=== PATIENT | female | born 1965 | race Caucasian/White ===

== ENCOUNTER → 2016-08-30 | Outpatient (CLI) | payer OTHER ==
[~2016-08-30] MED LIST: ALBUTEROL17 GM INH; ALDACTONE PO; ALTACE; AMITRIPTYLINE H25 MG PO; ARIPIPRAZOLE2 MG PO; ASPIRIN PO; ASPIRIN81 M2 PO; ATENOLOL25 MG PO; AURALGAN EAR DROPS; BP MED; BUPROPION XL150 MG PO; BUPROPION XL300 M1 PO; CELEXA PO; CELEXA20 MG PO; CIPRO PO; CLINDAMYCIN HC300 MG PO; CLOPIDOGREL75 MG PO; COMBIVENT INH14.7 GM INH; CRESTOR PO; EMBEDA ER 20-01 EACH PO; FERRO-TIME325 MG PO; FLEXERIL; FLEXERIL10 MG PO; GENERLAC PO; HYDROCHLOROTHIA25 MG PO; HYDROCODON-ACE1 EAC7 PO; HYDROXYZINE PAM25 M1 PO; HYDROXYZINE PAM25 MG PO; IBUPROFEN800 MG PO; IMDUR-ER30 M1 PO; IMDUR-ER30 M3 PO; ISOSORBIDE DINI30 MG PO; K-DUR20 ME1; KLOR-CON SPRIN10 MEQ PO; LASIX20 MG PO; LEVAQUIN750 M1 PO; LIPITOR PO; LIPITOR20 MG PO; LISINOPRIL; LISINOPRIL-HCTZ1 T14 PO; LISINOPRIL20 MG PO; LO-DOSE ASPIRIN81 M1 PO; LOPRESSOR PO; MEDROL4 MG/DOSE- PO; METOPROLOL SUCC25 MG PO; METOPROLOL TAR25 MG; MOTRIN600 M2 DOB; MUCINEX DM1 TAB.SR . PO; NITROGLYGERIN0.4 MG; NITROGYLCERIN; NUCYNTA100 MG PO; ORUDIS75 M1 PO; OXYCODONE PO; PATIENT'S PHARMACY; PERCOCET 10/3251 TAB PO; PERCOCET10 PO; PHENERGAN12.5 MG DOB; PREDNISONE PO; PREDNISONE1 MG; PREDNISONE10 MG PO; PREDNISONE10 MG/DOSE PO; SERTRALINE HCL50 MG PO; SYMBICORT INH; TENORMIN25 MG PO; TRAMADOL HCL50 M1 PO; VIBRAMYCIN100 M1 PO; VOLTAREN50 MG PO; XIFAXAN550 MG PO; ZESTORETIC; ZESTORETIC 20/21 TAB PO; ZITHROMAX PO; ZOLOFT; ZOLOFT PO
--- NOTE | ~2016-08-30 | US5 ---
[facility] A Service of [facility] RADIOLOGY TEXT RESULTS PATIENT: MUNA WILLIS LOCATION: [facility] : 63 UNIT #: [id number] AGE: [address]: CANDIDA SHAHID SEX: F ORDER DR: [id number] [place] [address] [place], [place] [address] [id number] O MR#: [id number] Acc #: [id number] NAME: MUNA WILLIS : 1965 SEX: F STUDY DATE/TIME: 08/30/2016 11:36 UNIT: [facility] ROOM: STUDY DESCRIPTION: US Abdominal Complete Attending Physician: Candida Shahid Aprn Referring Physician: Candida Shahid Aprn Ordering Physician: Physician Non-Staff [facility] REPORT This report is preliminary unless electronic signature is present EXAM Abdominal ultrasound complete, 08/30/2016. HISTORY Hepatitis C treated over 1 year ago. Observation for hepatocellular carcinoma. Abdominal bloating for 3 months. FINDINGS The liver demonstrates a coarsened echotexture and surface nodularity characteristic of cirrhosis. No cystic or solid mass lesions were seen in the liver. The intra and extrahepatic bile ducts are not dilated. The gallbladder is normal with no evidence of cholelithiasis, wall thickening, or pericholecystic fluid. The common duct measures 4 mm. The pancreas is normal. The spleen is minimally enlarged measuring 13.4 cm in greatest diameter. The visualized portions of the abdominal aorta and inferior vena cava are within normal limits. The kidneys are normal bilaterally. IMPRESSION 1. Coarsened liver echotexture and surface nodularity characteristic of cirrhosis. No cystic or solid mass lesions were seen in the liver. 2. Normal gallbladder. 3. Mild splenomegaly. Dictated by... Alberto Don M.D. THIS IS AN ELECTRONICALLY VERIFIED REPORT Alberto Don M.D. at 08/31/2016 8:29 AM ALISHA/vikram TD: 08/30/2016 14:33 [facility] A Service of [facility] RADIOLOGY TEXT RESULTS PATIENT: MUNA WILLIS LOCATION: [facility] #: [id number] : 63 UNIT #: [id number] AGE: [address]: CANDIDA SHAHID SEX: F ORDER DR: JOB #: [id number] MEDICAL IMAGING REPORT Page 1 of 1 COPY
== END | disposition home or self-care (01) ==
LOC: CGUS 10:11
DX: B18.2 Chronic viral hepatitis C (principal); R16.1 Splenomegaly, not elsewhere classified
CPT/HCPCS: 76700

== ENCOUNTER 2016-10-20 23:50 | Emergency (ER) | payer OTHER ==
--- NOTE | ~2016-10-20 | CR72 ---
[facility] A Service of [facility] RADIOLOGY TEXT RESULTS PATIENT: MUNA WILLIS LOCATION: [facility] : 63 UNIT #: [id number] AGE: [address]: Karla Pearson APRN SEX: F ORDER DR: [id number] [facility] [address]. [place], [place] [address] [id number] P MR#: [id number] Acc #: [id number] NAME: MUNA WILLIS : 1965 SEX: F STUDY DATE/TIME: 10/21/2016 1:06 UNIT: [facility] ROOM: STUDY DESCRIPTION: CR Chest Single View Portable Ordering Physician: Ed Alessandro Will M.D. Primary Care Physician: [facility] MEDICAL IMAGING REPORT This report is preliminary unless electronic signature is present EXAM Single view chest INDICATION Chest pain for 2 days. Positive smoking history. FINDINGS Single portable AP view of the chest compared to 10/19/2015. Heart and mediastinal contour is normal. There is an old left-sided rib fracture at the left seventh rib. No pneumothorax or pleural effusion. IMPRESSION No acute cardiopulmonary findings. Dictated by... Darrian Newman M.D. THIS IS AN ELECTRONICALLY VERIFIED REPORT Darrian Newman M.D. at 10/21/2016 4:30 AM RISA/nguyen TD: 10/21/2016 02:16 JOB #: [id number] MEDICAL IMAGING REPORT Page 1 of 1 COPY
--- NOTE | ~2016-10-20 | EKG ---
PATIENT: MUNA WILLIS UNIT #: [id number] Ventricular Rate: 91 BPM Atrial Rate: 91 BPM P-R Interval: 122 ms QRS Duration: 84 ms Q-T Interval: 380 ms QTC Calculation(Bezet): 467 ms P [place]: 74 degrees Calculated R [place]: 40 degrees Calculated T [place]: 55 degrees Diagnosis Line: Normal sinus rhythm Diagnosis Line: Nonspecific ST and T wave abnormality Diagnosis Line: Prolonged QT Diagnosis Line: Abnormal ECG Diagnosis Line: No previous ECGs available Diagnosis Line: Confirmed by NAVDEEP ALVARADO MD ([id number]) on Diagnosis Line: 10/21/2016 1:36:47 PM INTERPRETING MD: CHRISTIANO HUERTA
[~2016-10-20 23:50] MED LIST changes: -ALDACTONE PO; -EMBEDA ER 20-01 EACH PO; -GENERLAC PO; -HYDROXYZINE PAM25 M1 PO; -IMDUR-ER30 M1 PO; -LASIX20 MG PO; -PATIENT'S PHARMACY; -PERCOCET10 PO; -XIFAXAN550 MG PO
[2016-10-21 02:12] LABS: BASOPHIL% 0.4 % (0-2.5); EOSINOPHIL% 0.3 % (0.0-7.0); HEMOGLOBIN 13.3 gm/dL (12.0-16.0); LYMPHOCYTE# 2.1 X10e3 (1.0-3.5); LYMPHOCYTE% 24.5 % (17.0-45.0); MEAN CELL VOLUME 91.2 FL (83-96); MEAN CORPUSCULAR HEMOGLOBIN 30.2 PG (28-34); MEAN CORPUSCULAR HGB CONC 33.2 g/dL (30-36); MONOCYTE# 0.7 X10e3 (0-1.0); MONOCYTE% 7.6 % (3.0-12.0); NEUTROPHIL# 5.9 X10e3 (1.5-7.1); NEUTROPHIL% 67.2 % (40-75); PLATELET COUNT 128 X10e3 (140-420); RED BLOOD COUNT 4.38 X10e (3.90-5.30); RED CELL DISTRIBUTION WIDTH 17.8 % (11.0-15.5); WHITE BLOOD COUNT 8.7 X10e3 (4.0-10.5)
[2016-10-21 02:14] LABS: DIFF IND NO
[2016-10-21 02:27] LABS: INR 1.1; PARTIAL THROMBOPLASTIN TIME 23.8 SECONDS (23.5-31.3); PROTHROMBIN TIME (PATIENT) 11.3 SECONDS (9.6-11.5)
[2016-10-21 02:31] LABS: POC - CKMB 2.3 ng/mL (0.0-7.9); POC - TROPONIN <0.05 ng/mL (<=0.05)
[2016-10-21 02:36] LABS: ALBUMIN SERUM 4.6 g/dL (3.5-5.0); BILIRUBIN, DIRECT 0.1 mg/dL (0.0-0.2); BILIRUBIN,INDIRECT 0.6 mg/dL (0.0-0.9); BILIRUBIN,TOTAL 0.7 mg/dL (0.2-2.0); BUN/CREATININE RATIO 7.27; CALCIUM SERUM 9.1 mg/dL (8.4-10.2); CREATININE SERUM 1.1 mg/dL (0.6-1.4); GLOM FILT RATE Estimated 58.1 mL/min (>60); POTASSIUM 3.9 mmol/L (3.5-5.1); PROTEIN TOTAL SERUM 7.5 g/dL (6.0-8.3)
[2016-10-21 04:34] LABS: AMYLASE 32 U/L (0-46); LIPASE 30 U/L (22-51)
[2016-10-21 04:51] LABS: POC - TROPONIN <0.05 ng/mL (<=0.05)
[2017-01-11] MEDS ORDERED: GENERLAC PO (12:07)
[2017-01-11] MEDS ORDERED: EMBEDA ER 20-01 EACH PO (12:09)
[2017-01-11] MEDS ORDERED: XIFAXAN550 MG PO (12:10)
[2017-01-11] MEDS ORDERED: PERCOCET10 PO (12:11)
[2017-01-11] MEDS ORDERED: HYDROXYZINE PAM25 M1 PO (12:12)
[2017-01-11] MEDS ORDERED: LIPITOR20 MG PO (15:06)
[2017-01-11] MEDS ORDERED: LASIX20 MG PO (15:06)
[2017-01-11] MEDS ORDERED: CLOPIDOGREL75 MG PO (15:06)
[2017-01-11] MEDS ORDERED: ALDACTONE PO (15:06)
[2017-01-11] MEDS ORDERED: ALBUTEROL17 GM INH (15:06)
[2017-01-11] MEDS ORDERED: TENORMIN25 MG PO (15:06)
[2017-01-11] MEDS ORDERED: IMDUR-ER30 M1 PO (15:07)
== END 2016-10-21 05:37 | disposition home or self-care (01) ==
LOC: CED 23:50
PROVIDERS: Nurse Practitioner
DX: R07.89 Other chest pain (principal); R10.10 Upper abdominal pain, unspecified; I11.9 Hypertensive heart disease without heart failure; I51.9 Heart disease, unspecified; J44.9 Chronic obstructive pulmonary disease, unspecified; F41.9 Anxiety disorder, unspecified; K74.60 Unspecified cirrhosis of liver; F10.10 Alcohol abuse, uncomplicated; F17.210 Nicotine dependence, cigarettes, uncomplicated
CPT/HCPCS: 36415; 71010; 80048; 80076; 82150; 82553; 83690; 84484; 85025; 85610; 85730; 93005; 96361; 96374; 96375; 99284

== ENCOUNTER 2016-11-02 13:54 | Emergency (ER) | payer OTHER ==
--- NOTE | ~2016-11-02 | EKG ---
PATIENT: MUNA WILLIS UNIT #: [id number] Ventricular Rate: 59 BPM Atrial Rate: 59 BPM P-R Interval: 132 ms QRS Duration: 86 ms Q-T Interval: 446 ms QTC Calculation(Bezet): 441 ms P [place]: 46 degrees Calculated R [place]: 29 degrees Calculated T [place]: 68 degrees Diagnosis Line: Sinus bradycardia Diagnosis Line: Septal infarct , age undetermined Diagnosis Line: Abnormal ECG Diagnosis Line: When compared with ECG of 20-OCT-2016 23:58, Diagnosis Line: Vent. rate has decreased BY 32 BPM Diagnosis Line: Nonspecific T wave abnormality no longer evident Diagnosis Line: in Inferior leads Diagnosis Line: Confirmed by HILLARY ZAMBRANO MD ([id number]) on 11/03/2016 Diagnosis Line: 6:38:01 PM INTERPRETING MD: JUAN MANUEL HUERTA
--- NOTE | ~2016-11-02 | CR181 ---
[facility] A Service of [facility] RADIOLOGY TEXT RESULTS PATIENT: MUNA WILLIS LOCATION: [facility] : 63 UNIT #: [id number] AGE: [address]: Samson Rich MD SEX: F ORDER DR: [id number] [facility] [address] [place], [place] [address] [id number] E MR#: [id number] Acc #: [id number] NAME: MUNA WILLIS : 1965 SEX: F STUDY DATE/TIME: 11/02/2016 15:24 UNIT: [facility] ROOM: STUDY DESCRIPTION: CR Lumbar Spine 2 or 3 Views Attending Physician: Samson Rich M.D. Ordering Physician: Samson Rich M.D. Primary Care Physician: [facility]. MEDICAL IMAGING REPORT This report is preliminary unless electronic signature is present EXAM Lumbar series, 11/02/2016 INDICATIONS Tailbone pain extending into the proximal to lower and mid back regions. Symptoms 3 days. No known injury. TECHNIQUE Three views of the lumbar spine. COMPARISON 11/13/2014 FINDINGS The bones are osteopenic. There is degenerative change of the right hip. The patient is status post interval left hip replacement. There is a pars defect at L5-S1 with minimal, grade I antegrade listhesis of L5 on S1, unchanged. Alignment otherwise preserved, no acute fracture. Atherosclerotic calcifications are present. IMPRESSION 1. 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 Alignment otherwise preserved, no acute fracture. 2. Atherosclerotic disease and interval left hip replacement. Dictated by... Sergio May M.D. THIS IS AN ELECTRONICALLY VERIFIED REPORT Sergio May M.D. at 11/03/2016 7:42 AM DONG/fred [facility] A Service [facility] RADIOLOGY TEXT RESULTS PATIENT: MUNA WILLIS LOCATION: [facility] : 63 UNIT #: [id number] AGE: [address]: Samson Rich MD SEX: F ORDER DR: TD: 11/02/2016 21:22 JOB #: [id number] MEDICAL IMAGING REPORT Page 1 of 1 COPY
--- NOTE | ~2016-11-02 | CR219 ---
[facility] A Service of [facility] RADIOLOGY TEXT RESULTS PATIENT: MUNA WILLIS LOCATION: [facility] : 63 UNIT #: [id number] AGE: [address]: Samson Rich MD SEX: F ORDER DR: [id number] [facility] [address]. [place], [place] [address] [id number] E MR#: [id number] Acc #: [id number] NAME: MUNA WILLIS : 1965 SEX: F STUDY DATE/TIME: 11/02/2016 15:28 UNIT: [facility] ROOM: STUDY DESCRIPTION: CR Sacrum and Coccyx Min 2 Vie Attending Physician: Samson Rich M.D. Ordering Physician: Samson Rich M.D. MEDICAL IMAGING REPORT This report is preliminary unless electronic signature is present EXAM Sacrum and coccyx series 11/02/2016 INDICATIONS 50-year-old female with CAD, pain extending into the lower and mid-back. Chest pain. No known injury. TECHNIQUE 3 views of the sacrum and coccyx performed. COMPARISON STUDIES Lumbar series 11/10/2014. FINDINGS There is mild to early moderate degenerative change of the right hip. The patient is status post interval left hip replacement. The bones are osteopenic. No acute fracture. There is atherosclerotic change of the aorta. Visualized sacral ala appears intact. IMPRESSION 1. Osteopenia. No acute fracture. Degenerative changes in the right hip and prior left hip replacement. Dictated by... Sergio May M.D. THIS IS AN ELECTRONICALLY VERIFIED REPORT Sergio May M.D. at 11/03/2016 7:41 AM DONG/betsy TD: 11/02/2016 19:58 [facility] A Service [facility] RADIOLOGY TEXT RESULTS PATIENT: MUNA WILLIS LOCATION: [facility] : 63 UNIT #: [id number] AGE: [address]: Samson Rich MD SEX: F ORDER DR: HUNG #: [id number] MEDICAL IMAGING REPORT Page 1 of 1 COPY
--- NOTE | ~2016-11-02 | CR72 ---
[facility] A Service of [facility] RADIOLOGY TEXT RESULTS PATIENT: MUNA WILLIS LOCATION: [facility] : 63 UNIT #: [id number] AGE: [address]: Samson Rich MD SEX: F ORDER DR: [id number] [facility] [address]. [place], [place] [address] [id number] E MR#: [id number] Acc #: [id number] NAME: MUNA WILLIS : 1965 SEX: F STUDY DATE/TIME: 11/02/2016 15:21 UNIT: [facility] ROOM: STUDY DESCRIPTION: CR Chest Single View Portable Attending Physician: Samson Rich M.D. Ordering Physician: Samson Rich M.D. Primary Care Physician: [facility]. MEDICAL IMAGING REPORT This report is preliminary unless electronic signature is present EXAM Frontal chest, 11/02/2016 INDICATIONS Chest pain for 3 days. Mid back and chest pain. No known injury. TECHNIQUE Frontal chest was performed and compared with 10/19/2015. FINDINGS Cardiac silhouette is borderline in size and stable, the vascularity is normal. Lungs are clear, no effusion, dense consolidation or pneumothorax. Chronic-appearing rib fractures on the left with callus formation. IMPRESSION 1. Negative frontal chest. Chronic rib fractures with callus formation present on the left. Dictated by... Sergio May M.D. THIS IS AN ELECTRONICALLY VERIFIED REPORT Sergio May M.D. at 11/03/2016 7:42 AM Micah TD: 11/02/2016 21:20 JOB #: [id number] MEDICAL IMAGING REPORT Page 1 of 1 COPY
[2016-11-02 14:49] LABS: POC - CKMB 2.1 ng/mL (0.0-7.9); POC - TROPONIN <0.05 ng/mL (<=0.05)
[2016-11-02 14:50] LABS: BASOPHIL% 0.2 % (0-2.5); EOSINOPHIL% 0.2 % (0.0-7.0); HEMATOCRIT 38.6 % (35.0-45.0); HEMOGLOBIN 12.6 gm/dL (12.0-16.0); LYMPHOCYTE# 2.5 X10e3 (1.0-3.5); LYMPHOCYTE% 24.6 % (17.0-45.0); MEAN CELL VOLUME 92.1 FL (83-96); MEAN CORPUSCULAR HGB CONC 32.6 g/dL (30-36); MEAN PLATELET VOLUME 6.9 FL (6.5-11.5); MONOCYTE# 0.8 X10e3 (0-1.0); NEUTROPHIL# 6.9 X10e3 (1.5-7.1); PLATELET COUNT 136 X10e3 (140-420); RED BLOOD COUNT 4.19 X10e (3.90-5.30); RED CELL DISTRIBUTION WIDTH 17.1 % (11.0-15.5); WHITE BLOOD COUNT 10.4 X10e3 (4.0-10.5)
[2016-11-02 14:52] LABS: DIFF IND NO
[2016-11-02] MEDS ORDERED: EMBEDA ER 20-01 EACH PO (15:05)
[2016-11-02] MEDS ORDERED: PERCOCET10 PO (15:05)
[2016-11-02] MEDS ORDERED: PATIENT'S PHARMACY (15:05)
[2016-11-02 15:10] LABS: PROTHROMBIN TIME (PATIENT) 10.8 SECONDS (9.6-11.5)
[2016-11-02 15:15] LABS: ALBUMIN SERUM 3.9 g/dL (3.5-5.0); BILIRUBIN, DIRECT 0.1 mg/dL (0.0-0.2); BILIRUBIN,INDIRECT 0.5 mg/dL (0.0-0.9); BILIRUBIN,TOTAL 0.6 mg/dL (0.2-2.0); BUN/CREATININE RATIO 5.45; CALCIUM SERUM 8.7 mg/dL (8.4-10.2); CREATININE SERUM 1.1 mg/dL (0.6-1.4); GLOM FILT RATE Estimated 58.1 mL/min (>60); POTASSIUM 3.7 mmol/L (3.5-5.1); PROTEIN TOTAL SERUM 6.8 g/dL (6.0-8.3)
[2017-01-11] MEDS ORDERED: GENERLAC PO (12:07)
[2017-01-11] MEDS ORDERED: EMBEDA ER 20-01 EACH PO (12:09)
[2017-01-11] MEDS ORDERED: XIFAXAN550 MG PO (12:10)
[2017-01-11] MEDS ORDERED: PERCOCET10 PO (12:11)
[2017-01-11] MEDS ORDERED: HYDROXYZINE PAM25 M1 PO (12:12)
[2017-01-11] MEDS ORDERED: TENORMIN25 MG PO (15:06)
[2017-01-11] MEDS ORDERED: ALBUTEROL17 GM INH (15:06)
[2017-01-11] MEDS ORDERED: CLOPIDOGREL75 MG PO (15:06)
[2017-01-11] MEDS ORDERED: ALDACTONE PO (15:06)
[2017-01-11] MEDS ORDERED: LASIX20 MG PO (15:06)
[2017-01-11] MEDS ORDERED: LIPITOR20 MG PO (15:06)
[2017-01-11] MEDS ORDERED: IMDUR-ER30 M1 PO (15:07)
== END 2016-11-02 17:36 | disposition home or self-care (01) ==
LOC: CFTX 13:54 → CED 13:54
PROVIDERS: Emergency Medicine
DX: M54.5 Low back pain (principal); J44.9 Chronic obstructive pulmonary disease, unspecified; Z88.0 Allergy status to penicillin; Z88.5 Allergy status to narcotic agent; Z79.899 Other long term (current) drug therapy
CPT/HCPCS: 36415; 71010; 72100; 72220; 80048; 80076; 82553; 84484; 85025; 85610; 93005; 96372; 99284; J1885

== ENCOUNTER 2016-11-19 23:14 | Emergency (ER) | payer OTHER ==
--- NOTE | ~2016-11-19 | CR243 ---
[facility] A Service of [facility] RADIOLOGY TEXT RESULTS PATIENT: MUAN WILLIS LOCATION: [facility] : 63 UNIT #: [id number] AGE: [address]: Karla Pearson APRN SEX: F ORDER DR: [id number] [facility] [address] [place], [place] [address] [id number] E MR#: [id number] Acc #: [id number] NAME: MUNA WILLIS : 1965 SEX: F STUDY DATE/TIME: 11/20/2016 0:48 UNIT: [facility] ROOM: STUDY DESCRIPTION: CR Thoracic Spine 3 Views Attending Physician: Karla Pearson A.P.R.N. Ordering Physician: Karla Pearson A.P.R.N. Primary Care Physician: [facility] MEDICAL IMAGING REPORT This report is preliminary unless electronic signature is present EXAM Thoracic spine series INDICATION Upper and mid back pain after a fall 2 weeks ago. PROCEDURE 5 views thoracic spine. COMPARISON None. FINDINGS The thoracic vertebral bodies are difficult to see. There is multilevel wedging, particularly the mid thoracic spine. Overall alignment appears to be preserved. IMPRESSION Thoracic bodies are very difficult to see on this study. Mid thoracic vertebral bodies appear to have multilevel at least mild height loss. Chronicity of this finding is uncertain. Dictated by... Angel Pickett M.D. THIS IS AN ELECTRONICALLY VERIFIED REPORT Angel Pickett M.D. at 11/20/2016 10:22 PM EED/nguyen TD: 11/20/2016 03:09 JOB #: [id number] [facility] A Service of [facility] RADIOLOGY TEXT RESULTS PATIENT: MUNA WILLIS LOCATION: [facility] : 63 UNIT #: [id number] AGE: [address]: Karla Pearson APRN SEX: F ORDER DR: MEDICAL IMAGING REPORT Page 1 of 1 COPY
[~2016-11-19 23:14] MED LIST changes: +EMBEDA ER 20-01 EACH PO; +PATIENT'S PHARMACY; +PERCOCET10 PO
[2017-01-11] MEDS ORDERED: GENERLAC PO (12:07)
[2017-01-11] MEDS ORDERED: EMBEDA ER 20-01 EACH PO (12:09)
[2017-01-11] MEDS ORDERED: XIFAXAN550 MG PO (12:10)
[2017-01-11] MEDS ORDERED: PERCOCET10 PO (12:11)
[2017-01-11] MEDS ORDERED: HYDROXYZINE PAM25 M1 PO (12:12)
[2017-01-11] MEDS ORDERED: CLOPIDOGREL75 MG PO (15:06)
[2017-01-11] MEDS ORDERED: LIPITOR20 MG PO (15:06)
[2017-01-11] MEDS ORDERED: TENORMIN25 MG PO (15:06)
[2017-01-11] MEDS ORDERED: ALDACTONE PO (15:06)
[2017-01-11] MEDS ORDERED: ALBUTEROL17 GM INH (15:06)
[2017-01-11] MEDS ORDERED: LASIX20 MG PO (15:06)
[2017-01-11] MEDS ORDERED: IMDUR-ER30 M1 PO (15:07)
== END 2016-11-20 02:00 | disposition home or self-care (01) ==
LOC: CED 23:14
DX: S20.229A Contusion of unspecified back wall of thorax, initial encounter (principal); I10 Essential (primary) hypertension; W19.XXXA Unspecified fall, initial encounter; Y92.89 Other specified places as the place of occurrence of the external cause
CPT/HCPCS: 72072; 99283

== ENCOUNTER → 2016-11-25 | Outpatient (CLI) | payer OTHER ==
[~2016-11-25] MED LIST changes: +ALDACTONE PO; +GENERLAC PO; +HYDROXYZINE PAM25 M1 PO; +IMDUR-ER30 M1 PO; +LASIX20 MG PO; +XIFAXAN550 MG PO
--- NOTE | ~2016-11-25 | CT6 ---
[facility] A Service of [facility] RADIOLOGY TEXT RESULTS PATIENT: MUNA WILLIS [facility] 63 UNIT #: [id number] AGE: [address]: CANDIDA SHAHID SEX: F ORDER DR: [id number] [facility] [address]. [place], [place] [address] [id number] O MR#: [id number] Acc #: [id number] NAME: MUNA WILLIS : 1965 SEX: F STUDY DATE/TIME: 11/25/2016 11:47 UNIT: [facility] ROOM: STUDY DESCRIPTION: CT Abdomen WWo Cont Attending Physician: Candida Shahid Aprn Referring Physician: Candida Shahid Aprn Ordering Physician: Candida Shahid Aprn MEDICAL IMAGING REPORT This report is preliminary unless electronic signature is present EXAM CT abdomen INDICATIONS Hepatitis C and cirrhosis. Abdominal pain and swelling. Pain and swelling for about 1 month. TECHNIQUE Axial images were obtained through the abdomen before and after the IV administration of contrast. Images were obtained at 5 phases of contrast enhancement. Oral contrast present for the whole study. Multiplanar reformats were obtained. This CT exam was performed with one or more of the following radiation dose reduction techniques: automatic exposure control, adjustment of mA and/or kV according to patient size, and iterative reconstruction. COMPARISON STUDIES Comparison is made with 07/09/2015 and 05/21/2014. FINDINGS There is a stable 5 mm left lower lobe nodule since the 2013 exam. This is benign. There is a stable left adrenal nodule since 2014 measuring about 3 x 2 cm today. This is compatible with benign adenoma, given its stability. There is relative left renal atrophy. Both kidneys are non-obstructed. There is diffuse atherosclerotic disease, but there is no aortic aneurysm. Liver is cirrhotic. No liver masses are seen, and there is no pathologic enhancement. Gallbladder appears normal today. No adenopathy or free fluid is seen. The GI tract is normal. Portal veins and hepatic veins are patent. There is a recanalized paraumbilical vein which is relatively small in caliber. [facility] A Service of [facility] RADIOLOGY TEXT RESULTS PATIENT: MUNA WILLIS LOCATION: [facility] : 63 UNIT #: [id number] AGE: [address]: CANDIDA SHAHID SEX: F ORDER DR: IMPRESSION 1. Cirrhosis, but no suspicious enhancement or mass identified to suggest hepatocellular carcinoma. 2. Stable left adrenal adenoma. 3. Stable and therefore benign 5 mm left lower lobe pulmonary nodule. No further imaging of this lesion is needed. 4. Relative atrophy of the left kidney, potentially on the basis of atherosclerotic disease. 5. Recanalized paraumbilical vein. Dictated by... Donal Padilla Jr., M.D. THIS IS AN ELECTRONICALLY VERIFIED REPORT Dnoal Padilla Jr., M.D. at 11/30/2016 7:21 AM WILI/betsy TD: 11/28/2016 23:28 JOB #: [id number] MEDICAL IMAGING REPORT Page 1 of 1 COPY
[2016-11-25 17:10] LABS: POC - CREATININE 0.93 mg/dL (0.44-1.03); POC - GFR >60.0 mL/min (>60)
== END | disposition home or self-care (01) ==
LOC: CCAT 10:17
PROVIDERS: Nurse Practitioner Family
DX: B19.20 Unspecified viral hepatitis C without hepatic coma (principal); K74.60 Unspecified cirrhosis of liver; D35.02 Benign neoplasm of left adrenal gland; R91.1 Solitary pulmonary nodule; N26.1 Atrophy of kidney (terminal); I70.90 Unspecified atherosclerosis
CPT/HCPCS: 74170; 82565; Q9967

== ENCOUNTER → 2017-01-11 | Outpatient (CLI) | payer OTHER ==
[~2017-01-11] VITALS: Ht 152.4 cm; Wt 60.0 kg
--- NOTE | ~2017-01-11 | EKG ---
PATIENT: MUNA WILLIS UNIT #: [id number] Ventricular Rate: 67 BPM Atrial Rate: 67 BPM P-R Interval: 130 ms QRS Duration: 86 ms Q-T Interval: 422 ms QTC Calculation(Bezet): 445 ms P [place]: 58 degrees Calculated R [place]: 25 degrees Calculated T [place]: 85 degrees Diagnosis Line: Normal sinus rhythm with sinus arrhythmia Diagnosis Line: Nonspecific ST abnormality Diagnosis Line: Abnormal ECG Diagnosis Line: When compared with ECG of 02-NOV-2016 14:44, Diagnosis Line: No significant change was found Diagnosis Line: Confirmed by WADE VELÁSQUEZ MD ([id number]) on Diagnosis Line: 01/11/2017 10:47:07 PM INTERPRETING MD: PIERRE
[2017-01-11 11:53] LABS: HEMATOCRIT 37.6 % (35.0-45.0); MEAN CORPUSCULAR HEMOGLOBIN 28.3 PG (28-34); MEAN CORPUSCULAR HGB CONC 31.8 g/dL (30-36); MEAN PLATELET VOLUME 7.4 FL (6.5-11.5); RED BLOOD COUNT 4.23 X10e (3.90-5.30); RED CELL DISTRIBUTION WIDTH 16.5 % (11.0-15.5); WHITE BLOOD COUNT 9.1 X10e3 (4.0-10.5)
[2017-01-11 12:12] LABS: INR 1.1; PARTIAL THROMBOPLASTIN TIME 21.6 SECONDS (23.5-31.3); PROTHROMBIN TIME (PATIENT) 11.4 SECONDS (10.0-11.7)
[2017-01-11 12:43] LABS: BUN/CREATININE RATIO 12.72; CALCIUM SERUM 9.3 mg/dL (8.4-10.2); CREATININE SERUM 1.1 mg/dL (0.6-1.4); GLOM FILT RATE Estimated 57.7 mL/min (>60); POTASSIUM 4.1 mmol/L (3.5-5.1)
== END | disposition home or self-care (01) ==
LOC: CCVL 10:39
PROVIDERS: Internal Medicine Cardiovascular Disease
DX: R07.9 Chest pain, unspecified (principal); I25.10 Atherosclerotic heart disease of native coronary artery without angina pectoris; Z95.5 Presence of coronary angioplasty implant and graft; B19.20 Unspecified viral hepatitis C without hepatic coma; J44.9 Chronic obstructive pulmonary disease, unspecified; F17.210 Nicotine dependence, cigarettes, uncomplicated; E78.00 Pure hypercholesterolemia, unspecified; Z86.79 Personal history of other diseases of the circulatory system; Z91.041 Radiographic dye allergy status
CPT/HCPCS: 36415; 80048; 85027; 85610; 85730; 93005; 99152; 99153; C1769; C1887; C1894; J1644; J2250; J3010

== ENCOUNTER → 2017-01-25 | Outpatient (CLI) | payer OTHER ==
[2017-01-25 17:20] LABS: BUN/CREATININE RATIO 10.83; CALCIUM SERUM 9.3 mg/dL (8.4-10.2); CREATININE SERUM 1.2 mg/dL (0.6-1.4); GLOM FILT RATE Estimated 51.9 mL/min (>60)
== END | disposition home or self-care (01) ==
LOC: CLAB 16:01
PROVIDERS: Internal Medicine Cardiovascular Disease
DX: R94.4 Abnormal results of kidney function studies (principal)
CPT/HCPCS: 80048